=== PATIENT | female | born 1985 | race Caucasian/White ===

== ENCOUNTER 2017-01-02 16:11 | Emergency (ER) | payer OTHER ==
[~2017-01-02] VITALS: Ht 167.6 cm; Wt 88.0 kg
[2017-01-02] MEDS ORDERED: BIRTH CONTROL PILL PO (16:23)
[2017-01-02] MEDS ORDERED: [UNRECOGNIZED DRUG - REMARK] (16:23)
[2017-01-02 16:24] VITALS: BP 149/100; PULSE 66; RESP 20; TEMP 98.4; O2SAT 98
[2017-01-02 16:25] VITALS: RESP 20; O2SAT 100
--- NOTE | 2017-01-02 16:43 | PD ---
HPI Chief Complaint: Chest Pain Time Seen by Provider: 16:26 Travel History International Travel<30 days: No Contact w/Intl Traveler<30days: No Traveled to known affect area: No History of Present Illness HPI 31-year-old female complains of chest pain, numbness tingling sensation of the left side of face, left arm. Patient states the symptoms started about an hour prior to arrival to the ED. Patient states that the chest pain is sharp shooting pain intermittent pain localized to left chest. Patient denies any pain radiation. Patient denies any palpitation nausea or diaphoresis. Patient denies any shortness of breath. She started having left-sided facial numbness and left arm numbness and tingling intermittently also. Patient denies any headache. Patient denies any visual change. Patient denies any neck pain. Patient denies any abdominal pain. Patient denies any nausea vomiting diarrhea. Patient denies any dysuria or frequency. Patient denies any fever chills. PFSH Past Medical History Medical History: Denies Significant Hx Immunizations Current: Yes Influenza Vaccination: No ?: Not LMP: 2 WEEK AGO Past Surgical History Surgical History: No Previous Surgery Social History Alcohol Use: Yes (RARE) Tobacco Use: No (QUIT) Substance Use: No Allergies-Medications (Allergen,Severity, Reaction): Coded Allergies: No Known Allergies (Unverified , 01/02/17) Reported Meds & Prescriptions Reported Meds & Active Scripts Active Reported [[facility] Program] DIRECTED [ Control Pill] 1 Tab PO DAILY Review of Systems General / Constitutional: No: Fever Eyes: No: Visual changes HENT: No: Headaches Cardiovascular: Positive: Chest Pain or Discomfort Respiratory: No: Shortness of Breath Gastrointestinal: No: Abdominal Pain Genitourinary: No: Dysuria Musculoskeletal: No: Pain Skin: No Rash Neurologic: Positive: Paresthesia, No: Weakness Psychiatric: No: Depression Endocrine: No: Polydipsia Hematologic/Lymphatic: No: Easy Bruising Physical Exam Narrative GENERAL: Well-nourished, well-developed patient. SKIN: Focused skin assessment warm/dry. HEAD: Normocephalic. EYES: No scleral icterus. No injection or drainage. Pupils 3 mm equal reactive. NECK: Supple, trachea midline. No JVD or lymphadenopathy. CARDIOVASCULAR: Regular rate and rhythm without murmurs, gallops, or rubs. RESPIRATORY: Breath sounds equal bilaterally. No accessory muscle use. GASTROINTESTINAL: Abdomen soft, non-tender, nondistended. MUSCULOSKELETAL: No cyanosis, or edema. BACK: Nontender without obvious deformity. No CVA tenderness. Neurologic exam: Patient's awake alert oriented 3. No obvious focal neurological deficit. Data Data Last Documented VS Vital Signs Date Time Temp Pulse Resp B/P Pulse Ox O2 Delivery O2 Flow Rate FiO2 01/02/17 18:00 66 16 139/79 99 Room Air 01/02/17 16:24 98.4 Orders Complete Blood Count With Diff (01/02/17 16:35) Basic Metabolic Panel (Bmp) (01/02/17 16:35) Creatine Kinase (Cpk) (01/02/17 16:35) Troponin I (01/02/17 16:35) Prothrombin Time / Inr (Pt) (01/02/17 16:35) Act Partial Throm Time (Ptt) (01/02/17 16:35) Thyroid Stimulating Hormone (01/02/17 16:35) Chest, Single Ap (01/02/17 16:35) Iv Access Insert/Monitor (01/02/17 16:35) Ecg Monitoring (01/02/17 16:35) Oximetry (01/02/17 16:35) Cta Neck W Iv Contrast W 3d (01/02/17 ) Ed Urine Pregnancytest Poc (01/02/17 16:37) Iohexol 350 Inj (Omnipaque 350 Inj) (01/02/17 17:55) Labs Laboratory Tests Test 01/02/17 16:40 White Blood Count 7.0 TH/MM3 Red Blood Count 4.76 MIL/MM3 Hemoglobin 14.1 GM/DL Hematocrit 42.0 % Mean Corpuscular Volume 88.3 FL Mean Corpuscular Hemoglobin 29.7 PG Mean Corpuscular Hemoglobin 33.6 % Concent Red Cell Distribution Width 12.1 % Platelet Count 270 TH/MM3 Mean Platelet Volume 8.3 FL Neutrophils (%) (Auto) 54.8 % Lymphocytes (%) (Auto) 38.3 % Monocytes (%) (Auto) 5.7 % Eosinophils (%) (Auto) 0.8 % Basophils (%) (Auto) 0.4 % Neutrophils # (Auto) 3.8 TH/MM3 Lymphocytes # (Auto) 2.7 TH/MM3 Monocytes # (Auto) 0.4 TH/MM3 Eosinophils # (Auto) 0.1 TH/MM3 Basophils # (Auto) 0.0 TH/MM3 CBC Comment DIFF FINAL Differential Comment Prothrombin Time 10.2 SEC Prothromb Time International 0.9 RATIO Ratio Activated Partial 26.6 SEC Thromboplast Time Sodium Level 141 MEQ/L Potassium Level 3.5 MEQ/L Chloride Level 109 MEQ/L Carbon Dioxide Level 25.2 MEQ/L Anion Gap 7 MEQ/L Blood Urea Nitrogen 8 MG/DL Creatinine 0.83 MG/DL Estimat Glomerular Filtration 81 ML/MIN Rate Random Glucose 88 MG/DL Calcium Level 9.2 MG/DL Total Creatine Kinase 69 U/L Troponin I LESS THAN 0.02 NG/ML Thyroid Stimulating Hormone 1.890 uIU/ML 3rd Gen [facility] Medical Decision Making Medical Screen Exam Complete: Yes Emergency Medical Condition: Yes Interpretation(s) Last Impressions Chest X-Ray 01/02/17 1635 Signed Impressions: Service Date/Time: Monday, January 02, 2017 16:53 - CONCLUSION: No acute disease. Alden Ponce MD Neck CTA 01/02/17 0000 Signed Impressions: Service Date/Time: Monday, January 02, 2017 17:23 - CONCLUSION: 1. There is artifact in the left common carotid artery otherwise unremarkable study. 2. The internal carotid arteries are normal. Alden Ponce MD 1857 PM. CBC within normal limit. BMP within normal limit. Cardiac enzymes are normal. Differential Diagnosis Differential diagnosis including radiculopathy, neuralgia, atypical chest pain, angina, MA, PE, pneumothorax, carotid vertebral vascular disease. Narrative Course 31-year-old female with left-sided chest pain sharp shooting pain and numbness tingling sensation in the left face and left arm. 1905 PM. Patient states that she has sharp pain localized around the left breast area. Patient denies any chest pain now. Patient denies any numbness or tingling sensation of the arm or the face now. Toradol 30 mg IV. Diagnosis Primary Impression: Atypical chest pain Additional Impression: Neuralgia Patient Instructions: General Instructions Additional Instructions: Take medications as needed for pain. Follow-up with personal physician. Return if worse. Med/Other Pt SpecificInfo: Prescription(s) given Scripts Tramadol (Ultram)50 Mg Tab50 Mg PO Q6H PRN (PAIN) #20 TAB Ref 0 Prov:Seth Segura MD 01/02/17 Meloxicam (Mobic)15 Mg Tab15 Mg PO DAILY #20 TAB Ref 0 Prov:Seth Segura MD 01/02/17 Disposition: 01 DISCHARGE HOME Condition: Stable Seth Segura MD Jan 02, 2017 16:43
[2017-01-02 16:57] LABS: AUTOMATED NEUTROPHIL # 3.8 TH/MM3 (1.8-7.7); BASOPHIL % 0.4 % (0.0-2.0); EOSINOPHIL # 0.1 TH/MM3 (0-0.4); EOSINOPHIL % 0.8 % (0.0-4.0); HEMO FLAGS DIFF FINAL; LYMPH % 38.3 % (9.0-44.0); LYMPHOCYTE # 2.7 TH/MM3 (1.0-4.8); MEAN CELL VOLUME 88.3 FL (80.0-100.0); MEAN CORPUSCULAR HEMOGLOBIN 29.7 PG (27.0-34.0); MEAN CORPUSCULAR HGB CONC 33.6 % (32.0-36.0); MONO % 5.7 % (0.0-8.0); NEUT % 54.8 % (16.0-70.0); PLATELET COUNT 270 TH/MM3 (150-450); RED BLOOD COUNT 4.76 MIL/MM3 (4.00-5.30); RED CELL DISTRIBUTION WIDTH 12.1 % (11.6-17.2)
--- NOTE | 2017-01-02 17:03 | RADRPT ---
EXAM DATE/TIME: 01/02/2017 16:53 [facility] COMPARISON: No previous studies available for comparison. INDICATIONS : Sudden onset of chest pain today MEDICAL HISTORY : None. SURGICAL HISTORY : None. ENCOUNTER: Initial ACUITY: 1 day PAIN SCORE: 5/10 LOCATION: Bilateral chest FINDINGS: A single view of the chest demonstrates the lungs to be symmetrically aerated without evidence of mas s, infiltrate or effusion. The cardiomediastinal contours are unremarkable. Osseous structures are intact. CONCLUSION: No acute disease. Alden Ponce MD on January 02, 2017 at 17:01 Board Certified Radiologist. This report was verified electronically.
[2017-01-02 17:10] LABS: CHLORIDE 109 MEQ/L (98-107); POTASSIUM 3.5 MEQ/L (3.5-5.1); SODIUM (NA) 141 MEQ/L (136-145)
[2017-01-02 17:13] LABS: ANION GAP 7 MEQ/L (5-15); BICARBONATE 25.2 MEQ/L (21.0-32.0); BLOOD UREA NITROGEN 8 MG/DL (7-18)
[2017-01-02 17:15] LABS: APTT (PATIENT) 26.6 SEC (24.3-30.1); INTERNATIONAL NORMALIZED RATIO 0.9 RATIO; PROTHROMBIN TIME - PATIENT 10.2 SEC (9.8-11.6)
[2017-01-02 17:16] LABS: GLOMERULAR FILTRATION RATE 81 ML/MIN (>89)
[2017-01-02 17:21] LABS: CREATINE KINASE 69 U/L (26-192)
[2017-01-02] MEDS ORDERED: IOHEXOL 350 MG/ML 10 ML VIAL (for RAD DIAG) IV ONE (17:55)
[2017-01-02 18:00] VITALS: BP 139/79; PULSE 66; RESP 16; O2SAT 99
--- NOTE | 2017-01-02 18:09 | RADRPT ---
EXAM DATE/TIME: 01/02/2017 17:23 [facility] COMPARISON: No previous studies available for comparison. INDICATIONS : Left sided facial arm, and chest numbness. evaluate for occlusion. IV CONTRAST: 75 cc Omnipaque 350 (iohexol) IV RADIATION DOSE: 43.11 CTDIvol (mGy) MEDICAL HISTORY : None SURGICAL HISTORY : None. ENCOUNTER: Initial ACUITY: 1 day PAIN SCALE: 0/10 LOCATION: Left neck Elevated flow velocities and ICA/CCA ratios have been found to correlate with increased degrees of vessel stenosis, calculated as percentage of diameter relative to a normal segment of distal ICA/CCA. TECHNIQUE: Volumetric scanning was performed using a multirow detector CT scanner. The data was post processed with a variety of visualization algorithms including full-volume maximum intensity projection, multip lanar sliding thin-slab reformation, curved-planar reformation, and surface-rendering techniques. Us ing automated exposure control and adjustment of the mA and/or kV according to patient size, radiatio n dose was kept as low as reasonably achievable to obtain optimal diagnostic quality images. DICOM f ormat image data is available electronically for review and comparison. FINDINGS: AORTIC ARCH: There is a three-vessel origin of the great vessels from the aorta. No evidence of ostial narrowing. RIGHT CAROTID: The common carotid artery is intact. The carotid bulb has a normal configuration without ulceration o r narrowing. The internal carotid artery lumen is smooth without stenosis. The external carotid ricky ry is intact. LEFT CAROTID: There is extensive artifact in the left common carotid artery due to the contrast in the left interna l jugular vein.. The carotid bulb has a normal configuration without ulceration or narrowing. The i nternal carotid artery lumen is smooth without stenosis. The external carotid artery is intact. VERTEBRALS: The vertebral arteries have a symmetric diameter. No stenotic lesions are seen. CONCLUSION: 1. There is artifact in the left common carotid artery otherwise unremarkable study. 2. The internal carotid arteries are normal. Alden Ponce MD on January 02, 2017 at 18:04 Board Certified Radiologist. This report was verified electronically.
[2017-01-02] MEDS ORDERED: MOBI15TA PO (19:07)
[2017-01-02] MEDS ORDERED: ULTR50TA5 PO (19:07)
[2017-01-02] MEDS ORDERED: KETOROLAC TROMETHAMINE 30 MG/ML (IVP) VIAL IV PUSH ONE (19:15)
[2017-01-02 19:32] VITALS: BP 123/69
--- NOTE | 2017-01-02 20:21 | EKG ---
Date Performed: 01/02/2017 Time Performed: 16:16:36 PTAGE: 31 years EKG: Sinus rhythm WITH SINUS ARRHYTHMIA NORMAL ECG NO PREVIOUS TRACING DOCTOR: Jules Alicea Interpretating Date/Time 01/02/2017 20:19:02
== END 2017-01-02 19:50 | disposition home or self-care (01) ==
LOC: PHED 16:11
DX: R07.89 Other chest pain (principal); M79.2 Neuralgia and neuritis, unspecified; R20.2 Paresthesia of skin
CPT/HCPCS: 70498; 71010; 80048; 82550; 84443; 84484; 84703; 85025; 85610; 85730; 93005; 96374; 99285; J1885; Q9967